=== PATIENT | female | born 1960 | race Caucasian/White ===

== ENCOUNTER 2022-06-03 10:51 | Outpatient (REF) | payer OTHER, SELFPAY ==
--- NOTE | ~2022-06-03 | FL_ITS ---
EXAMINATION: FL BARIUM SWALLOW CLINICAL INFORMATION: Dysphagia. COMPARISON: None. TECHNIQUE: Barium swallow examination is performed using fluoroscopic evaluation in addition to multiple fluoroscopic spot views. The patient is imaged both upright and prone and using both thick and thin sulfate along with effervescent granules. Barium tablet also given. FLUOROSCOPY TIME: 1.7 minutes TOTAL: 10.827 mGy DAP: 3.381 Gy-cm2 IMAGES: 27 FINDINGS: Barium tablet given with free passage into the stomach without delay. The swallowing mechanism appears normal without aspiration or penetration. No stricture, ulceration or mass identified. Esophageal motility normal. No hiatal hernia. No reflux. FL/FL barium swallow IMPRESSION: Normal barium swallow.
== END 2022-06-03 10:52 | disposition home or self-care (01) ==
LOC: HO.XRAY 10:51
PROVIDERS: PCP Internal Medicine; Visit Provider Otolaryngology
DX: R13.10 Dysphagia, unspecified (principal)
CPT/HCPCS: 74220